=== PATIENT | male | born 1960 | race Caucasian/White ===

== ENCOUNTER → 2017-03-05 | Outpatient (CLI) | payer BC ==
[2017-03-05 10:14] LABS: BLOOD UREA NITROGEN 14 mg/dL (7-22); BUN/CREATININE RATIO 15.55 (6-20); CALCIUM 9.6 mg/dL (8.7-10.7); EST GLOMERULAR FILTRATION > 60 (>60 ml/min/1.73m(2)); HDL CHOLESTEROL 46 mg/dL (40-150); SERUM ALBUMIN 4.6 g/dL (3.5-4.8); SERUM CHOLESTEROL 138 mg/dL (120-200)
[2017-03-06 12:31] LABS: PSATOTAL 4.3 ng/mL (<=3.5)
[2017-03-06 14:17] LABS: FREE PSA/PSA RATIO 0.07 ratio (())
== END ==
LOC: LAB 09:44
PROVIDERS: ATTEND Internal Medicine
DX: E78.5 Hyperlipidemia, unspecified (principal); I10 Essential (primary) hypertension; R97.20 Elevated prostate specific antigen [PSA]
CPT/HCPCS: 36415; 80053; 80061; 82550; 84153; 84154

== ENCOUNTER → 2017-05-28 | Outpatient (CLI) | payer BC ==
--- NOTE | 2017-05-29 19:45 | DI ---
RIGHT ELBOW, 05/28/2017 12:53 PM: Clinical History: Right elbow pain. Previous Exam: None at this facility. 4 views are submitted. There is an impacted fracture involving the neck of the radius. There is no in tra-articular fracture component. The distal humerus and the proximal ulna are normal. A small joint effusion is present. Reading: Impacted fracture of the neck of the radius.
== END ==
LOC: RAD 13:50
PROVIDERS: ATTEND Physician Assistant Surgical
DX: M25.521 Pain in right elbow (principal); S52.131A Displaced fracture of neck of right radius, initial encounter for closed fracture
CPT/HCPCS: 73080